=== PATIENT | female | born 1970 | race Caucasian/White ===

== ENCOUNTER 2019-03-16 07:24 | Observation (INO) | payer OTHER ==
[2019-03-16] MEDS ORDERED: CHLORHEXIDINE GLUC HIBICLENS 118 ML BTL TP ONE (07:52)
[2019-03-16] MEDS ORDERED: BUPIVACAINE/EPI 0.25% 30 ML SDV ONE (07:53)
[2019-03-16] MEDS ORDERED: BACITRACIN 50,000 UNITS/10 ML SYR IRR ONE (07:53)
[2019-03-16] MEDS ORDERED: THROMBIN (BOVINE) 5,000 UNIT VIAL TP ONE (07:53)
[2019-03-16] MEDS ORDERED: ACETAMINOPHEN 500 MG TAB PO ONE (08:27)
[2019-03-16] MEDS ORDERED: ceFAZolin 2 GM/DEXTROSE 100 ML IV ONE (08:27)
[2019-03-16] MEDS ORDERED: LR 1,000 ML IV ONE (08:29)
[2019-03-16] MEDS ORDERED: MIDAZOLAM 2 MG/2 ML VIAL IVP ONE (09:10)
--- NOTE | 2019-03-16 09:10 | PDANEPAE ---
ANE Past Medical History - Cardiovascular History Hx Hypertension: No Hx Arrhythmias: No Hx Chest Pain: No Hx Coronary Artery / Peripheral Vascular Disease: No Hx CHF / Valvular Disease: No Hx Palpitations: No Cardiovascular History Comment: high chol - Pulmonary History Hx COPD: No Hx Asthma/Reactive Airway Disease: No Hx Recent Upper Respiratory Infection: No Hx Oxygen in Use at Home: No Hx Sleep Apnea: No Sleep Apnea Screening Result - Last Documented: Negative - Neurologic History Hx Cerebrovascular Accident: No Hx Seizures: No Hx Dementia: No Neurologic History Comment: tingling at times to arms - Endocrine History Hx Diabetes: No Hypothyroid: No Hyperthyroid: No Obesity: no - Renal History Hx Renal Disorders: No - Liver History Hx Hepatic Disorders: No - Neurological & Psychiatric Hx Hx Neurological and Psychiatric Disorders: Yes Neurological / Psychiatric History Comment: anxiety and emotional r/t pain - Cancer History Hx Cancer: No - Congenital Disorder History Hx Congenital Disorders: No - GI History GERD: no Hx Gastrointestinal Disorders: No - Other Health History Other Health History: reading glasses - Chronic Pain History Chronic Pain: Yes (neck, lower back/ spasms) - Surgical History Prior Surgeries: tonsillectomy. tubal ligation. partial hysterectomy. veins removed from leg. breast implants. breast bx ANE Review of Systems Review of Systems: - Exercise capacity Exercise capacity: >=4 METS METS (RN): 4 METS ANE Patient History - Allergies Allergies/Adverse Reactions: Sulfa (Sulfonamide Antibiotics) Allergy (Verified 03/15/19 09:06) - Home Medications Home Medications: Atorvastatin Calcium 03/15/19 [Last Taken Unknown] Sertraline HCl 03/15/19 [Last Taken Unknown] - NPO status NPO Since - Liquids (Date): 03/15/19 NPO Since - Liquids (Time): 20:30 NPO Since - Solids (Date): 03/15/19 NPO Since - Solids (Time): 20:00 - Anes Hx Anes Hx: post operative nausea and vomiting Hx Anesthesia Complications (with details): s/p breast augmentation - Smoking Hx Smoking Status: Former smoker - Alcohol Use Alcohol Use: Occasionally - Family Anes Hx Family Anes Hx: neg - N/A Family Hx Anesthesia Complications: none ANE Labs/Vital Signs - Labs Result Diagrams: 03/16/19 09:04 - Vital Signs Height: 157.48 cm Weight: 70.307 kg ANE Physical Exam - Airway Neck exam: decreased ROM Mallampati Score: Class 2 Mouth exam: normal dental/mouth exam - Pulmonary Pulmonary: no respiratory distress, no rales or rhonchi, clear to auscultation - Cardiovascular Cardiovascular: regular rate and rhythym, no murmur, rub, or gallop - ASA Status ASA Status: II ANE Anesthesia Plan Anesthesia Plan: general endotracheal anesthesia Total IV Anesthesia: No
[2019-03-16 09:16] LABS: PLATELET COUNT 268 10^3/uL (150-400)
--- NOTE | 2019-03-16 09:35 | PDHPUP ---
History & Physical Update H&P update statement: This history and physical update is based on an assessment of the patient which was completed after admission or registration (within 24 hours), but prior to the surgery/procedure. H&P update: H&P reviewed & patient examined, no change in patient's condition since H&P completed
[2019-03-16] MEDS ORDERED: REMIFENTANIL HCL 1 MG VIAL ONE (09:55)
[2019-03-16] MEDS ORDERED: fentaNYL 100 MCG/2 ML INJ ONE ×2 (09:55→12:09)
[2019-03-16] MEDS ORDERED: PROPOFOL 200 MG/20 ML VIAL ONE (09:56)
[2019-03-16] MEDS ORDERED: PROPOFOL/EMULSION 500 MG/50 ML BOTTLE IV ONE (09:56)
[2019-03-16] MEDS ORDERED: ONDANSETRON 4 MG/2 ML VIAL ONE ×2 (09:57→12:42)
[2019-03-16] MEDS ORDERED: ROCURONIUM 50 MG/5 ML VIAL ONE (09:57)
[2019-03-16] MEDS ORDERED: DEXAMETHASONE 4 MG/ML VIAL ONE ×2 (09:59)
[2019-03-16] MEDS ORDERED: LIDOCAINE 2% 5 ML SDV ONE (10:03)
[2019-03-16] MEDS ORDERED: SUCCINYLCHOLINE CHLORIDE 200 MG/10 ML SYR IVP ONE (10:05)
[2019-03-16] MEDS ORDERED: HYDROCODONE/APAP 5/325 TAB PO PRN (11:01)
[2019-03-16] MEDS ORDERED: ONDANSETRON 4 MG/2 ML VIAL IVP PRN ×2 (11:01→11:59)
[2019-03-16] MEDS ORDERED: oxyCODONE IR 5 MG TAB PO PRN (11:01)
[2019-03-16] MEDS ORDERED: MEPERIDINE 25 MG/0.5 ML AMP IVP PRN (11:01)
[2019-03-16] MEDS ORDERED: PROMETHAZINE HCL 25 MG/ML INJ IVP PRN ×2 (11:01→17:22)
[2019-03-16] MEDS ORDERED: PHENYLEPHRINE HCL 100 MCG/ML SYR IVP PRN (11:01)
[2019-03-16] MEDS ORDERED: LR 500 ML IV PRN (11:01)
[2019-03-16] MEDS ORDERED: ACETAMINOPHEN 500 MG TAB PO PRN (11:01)
[2019-03-16] MEDS ORDERED: NALOXONE HCL 0.4 MG/ML INJ IVP PRN (11:01)
[2019-03-16] MEDS ORDERED: DIAZEPAM 10 MG/2 ML SYR IVP PRN (11:01)
[2019-03-16] MEDS ORDERED: BISACODYL 10 MG SUPP PR PRN (11:59)
[2019-03-16] MEDS ORDERED: HYDROmorphONE/DILAUDID 1 MG/ML INJ IVP PRN (11:59)
[2019-03-16] MEDS ORDERED: diphenhydrAMINE 25 MG CAP PO PRN (11:59)
[2019-03-16] MEDS ORDERED: POLYETHYLENE GLYCOL 3350 17 GM PKT PO PRN (11:59)
[2019-03-16] MEDS ORDERED: MAGNESIUM HYDROXIDE 30 ML UDCUP PO PRN (11:59)
[2019-03-16] MEDS ORDERED: ONDANSETRON DISINTEGRATING 4 MG TAB PO PRN (11:59)
[2019-03-16] MEDS ORDERED: LACTULOSE 20 GM/30 ML UDCUP PO PRN (11:59)
[2019-03-16] MEDS ORDERED: NS 1,000 ML IV SCH (12:00)
[2019-03-16] MEDS: fentaNYL 100 MCG/2 ML INJ IVP PRN ×2 (12:10→12:25)
--- NOTE | 2019-03-16 12:26 | POSTOPPROG ---
Post Op Note Date of Operation: 03/16/19 Surgeon: Roxy Ponce Materials Intern: Rosita Webber PA-C Anesthesia: GET(General Endotracheal) Pre-op Diagnosis: Cervical radiculopathy Post-op Diagnosis: Cervical radiculopathy Procedure: anterior cervical discectomy and fusion at C5/6 Inf/Abcess present in the surg proc area at time of surgery?: No Depth: Deep Incisional (Fascial) EBL: Minimal Drains: Fredis Wilson Plan Plan: 48 yo female s/p ACDF C5/6 - neuro checks - pain control - EARLINE drain x 1 - soft collar - PT/OT - postop C-spine x-rays pending - discharge tomorrow Exam Awake. Alert Following commands Strength full at 5/5 Incision with dressing
--- NOTE | 2019-03-16 12:28 | GOP ---
[f rep st] OPERATIVE REPORT DATE OF OPERATION: 03/16/2019 SURGEON: Roxy Ponce DO NEUROSURGEON: Roxy Ponce DO. ST[employer]ER [employer]TER OPERATOR: JOHNSON Champion. PREOPERATIVE DIAGNOSIS: 1. Radiculopathy. 2. Herniated nucleus pulposus. POSTOPERATIVE DIAGNOSIS: 1. Radiculopathy. 2. Herniated nucleus pulposus. PROCEDURE PERFORMED: 1. C5-6 anterior cervical diskectomy and fusion with LDR RAVI-C 8.0 x 14 mm interbody graft. 2. Microscope. 3. Autograft. FINDINGS: SPECIMENS: None. ESTIMATED BLOOD LOSS: 50 mL. INDICATIONS: This is a 48-year-old female with a severe radiculopathy that corresponds to a C5-6 sof t herniated disk. She was offered a foraminotomy versus ACDF. She elected to move forward with ACDF . She was identified and consented. Sites were marked. Brought to the operating room, anesthetized under general endotracheal tube anesthesia. Interscapular roll was placed. Head was placed in a [place] horseshoe to a neutral position. Incision site was marked using a blunt needle taped to the s kin. She was prepped and draped in the usual sterile fashion. Incision was anesthetized with 0.5% M arcaine with epinephrine. Incision was made with a 10 blade. Hemostasis was obtained with bipolar c autery, dissecting through the platysma in a horizontal fashion moving along the medial border of the SCM in an the avascular plane retracting the trachea and esophagus medially, the carotid artery late rally with handheld Cloward, coming down anterior aspect of the vertebral spine. Cleared the prevert ebral fascia with Kittners. Placed a bayonetted spinal needle at the C5-6 level, took an x-ray. Jaydon ified it was at the appropriate level. Marked this level with the Bovie. Then measured and placed t he Shadow-Line retractor, brought in the microscope. Using the high-speed drill, I removed the disk and cartilaginous endplate from the superior and inferior endplates, opening the posterior longitudin al ligament with micro upgoing curette. There was a large free fragment of disk just posterior to th is off to the left, and this was removed with a micropituitary. We then extended this, removing disk and osteophyte in the superior and inferior endplate out bilateral lateral foramen until we were wel l decompressed. Neural monitoring remained stable throughout. We then harvested autograft from the superior and inferior endplates, measured an 8 x 14 x 12 mm graft, packed it with the LDR RAVI-C blaise t, packed it with the patient's own bone, tamped it into place, removed the [place] pin superiorly and placed the 1 wing, tamping it into place. Took an x-ray verifying it was in the appropriate positio n. Cold welded with the 1, cold welded with the 2 impactor. Removed the inferior [place] pin, pluggi ng the hole with a Gelfoam bullet. Placed the 1 wing. Took an x-ray. Verified it was in the approp riate position. Cold welded with the 1, cold welded with the 2 impactor. Took a final x-ray. All h ardware was in good position. Neural monitoring was stable. Meticulous hemostasis was obtained with FloSeal and bipolar cautery. We then copiously irrigated with over a liter of gentamicin-infused sa line. Trocar to drain out inferiorly, placing in the prevertebral space. Removed the microscope. R emoved the retractor. Closed the platysma with 2-0 Vicryl pop offs, subcutaneous layer of 3-0 Vicryl pop-offs. The skin was closed with 4-0 running Monocryl and Steri-Strips. Drain was sutured in wit h a 2-0 Vicryl pop-off placed to bulb suction. Neural monitor remained stable. Patient tolerated pr ocedure well. No complications. DESCRIPTION OF PROCEDURE: FLUIDS: 700 mL of crystalloid. URINE OUTPUT: None. DRAINS: 1 EARLINE in the prevertebral space to bulb suction. COMPLICATIONS: None. /[id number]/MODL
[2019-03-16] MEDS ORDERED: HYDROmorphONE/DILAUDID 1 MG/ML INJ ONE (12:42)
[2019-03-16] MEDS: HYDROmorphONE/DILAUDID 1 MG/ML INJ IVP PRN ×2 (12:46→12:58)
[2019-03-16] MEDS ORDERED: METHOCARBAMOL 750 MG TAB ONE (13:12)
[2019-03-16] MEDS: METHOCARBAMOL 750 MG TAB PO PRN ×2 (13:13→21:39)
[2019-03-16] MEDS ORDERED: HYDROCODONE/APAP 5/325 TAB ONE (13:13)
--- NOTE | 2019-03-16 14:12 | POSTANESTH ---
Post Anesthetic Evaluation Cardiovascular Status: Similar to Pre-Op Cond Respiratory Status: Normal, Stable Level of Consciousness/Mental Status: Can Participate in Eval Pain Control: Adequate, Prn Tx Ordered Nausea/Vomiting Control: Adequate, Prn Tx Ordered Complications Possibly Related to Anesthesia: None Noted
[2019-03-16] MEDS: oxyCODONE IR 5 MG TAB PO PRN ×2 (14:41→20:26)
[2019-03-16] MEDS: ceFAZolin 2 GM/DEXTROSE 100 ML IV SCH ×2 (14:42→21:39)
[2019-03-16] MEDS: SENNOSIDES/DOCUSATE SODIUM TAB PO SCH (20:26)
[2019-03-17] MEDS: oxyCODONE IR 5 MG TAB PO PRN ×3 (01:00→09:13)
[2019-03-17] MEDS: METHOCARBAMOL 750 MG TAB PO PRN (07:20)
[2019-03-17 07:51] VITALS: BP 121/85
--- NOTE | 2019-03-17 08:14 | NEUSURGPN ---
Date of Surgery: 03/16/19 Post Op Day: 1 Assessment/Plan: Assessment: 48 yo female s/p ACDF C5/6 POD#1 Plan: -PT/OT/ST eval prior to discharge -Post op xrays show stable hardware placement -EARLINE minimal output, remove EARLINE -Ok to discharge home after evaluated by therapies Discussed patient with Dr Ponce who saw patient last evening as well Subjective: shoulder discomfort Objective: AxO x4 MAEx5 5/5 BLE, BUE Dressing CDI Soft collar in place EARLINE patent Neuro Check Frequency: per routine Urinary Catheter in Place: No - Physician Discussed Patient with : [facility] Physical Exam - Vitals, I&O, Labs I and O 03/16/19 03/17/19 03/18/19 05:59 05:59 05:59 Intake Total 2560 350 Output Total 3655 Balance -1095 350 Weight 70.307 kg 70.307 kg Intake: Oral (ml) 700 350 IV Intake (ml) 850 IV Infused (ml) 1010 Ns 1,000 ml @ 75 mls/hr 900 IV CONT TERESA Rx#: [id number] ceFAZolin 2 GM/DEXTROSE 110 100 ml @ 200 mls/hr IV Q8HRS TERESA Rx#:[id number] Output: Urine (ml) 3400 Toilet 3400 Emesis (ml) 250 EARLINE Drain Output (ml) 5 #1 Neck 5 Other: Intake Quantity Yes Sufficient Number of Voids Toilet 1 Number of Emesis 1 Occurrences Vital Signs Temp Pulse Resp BP Pulse Ox 36.6 C 65 16 121/85 H 96 03/17/19 07:50 03/17/19 07:50 03/17/19 07:50 03/17/19 07:50 03/17/19 07:50 Laboratory Results 03/16/19 09:04 ICD10 Worksheet Patient Problems: Problems Problem Status Onset Cervical stenosis of spine Acute - ICD10 Problem Qualifiers (1) Cervical stenosis of spine
[2019-03-17] MEDS ORDERED: SERTRALINE HCL 50 MG TAB PO SCH (09:00)
[2019-03-17] MEDS ORDERED: ATORVASTATIN CALCIUM 10 MG TAB PO SCH (09:00)
[2019-03-17] MEDS: SENNOSIDES/DOCUSATE SODIUM TAB PO SCH (09:14)
--- NOTE | 2019-03-17 14:10 | ASMTLACE ---
YAELE Length of stay for Answers: 2 days current admission Acuity / Level of Answers: No Care: Did the patient have an inpatient admission? Comorbidities - select Answers: Opioid dependence all that apply / Chronic pain # of Emergency department Answers: 0 visits in the last 6 months Social determinants Answers: Mental health diagnosis (anxiety, depression, pers onality disorders, etc.) Score: 9 Date Signed: 03/17/2019 02:09 PM Electronically Signed By:LEOLA Hernandez
--- NOTE | 2019-03-17 14:11 | ASMTCMCOM ---
CM Note CM Note Notes: Pt had planned cervical surgery, resides with spouse and minor children. PT/OT rec home. No CM d/c needs identified. Date Signed: 03/17/2019 02:10 PM Electronically Signed By:LEOLA Hernandez
[2019-03-19] MEDS ORDERED: ENOXAPARIN 40 MG/0.4 ML SYR SC SCH (09:00)
== END 2019-03-17 12:14 | disposition home or self-care (01) ==
LOC: FSGY 07:24 → F3E 11:59 → F3N 14:10
PROVIDERS: ADMIT Physician Assistant Surgical; ATTEND Neurological Surgery
DX: M50.122 Cervical disc disorder at C5-C6 level with radiculopathy (principal)
CPT/HCPCS: 22551; 72040; 76000; 97116; 97161; 97166; 97535; G0378; C1713; J0330; J0690; J1100; J1170; J2250; J2405; J2550; J2704; J3010